=== PATIENT | female | born 1940 | race Caucasian/White ===

== ENCOUNTER 2023-08-12 07:42 | Emergency (ER) | payer OTHER, SELFPAY ==
[2023-08-12 07:52] VITALS: BP 168/88
[2023-08-12 07:53] VITALS: BP 168/88; BMI 28.9
[2023-08-12 08:00] VITALS: BP 149/100
--- NOTE | 2023-08-12 08:09 | ED.GENMED ---
History of Present Illness
General
Chief Complaint: Cold/Flu/URI Symptoms
Source: patient
Exam Limitations: none
Time Seen by Provider: 08/12/23 08:02
Travel History
Have you had any contact with someone who has COVID-19?: No
Do you have any symptoms of coronavirus? Fever > 100 degrees, chills, cough, shortness of breath, sore throat, loss of taste or smell, muscle aches, or headache?: No
History of Present Illness
History of Present Illness:
82-year-old female who vaguely just does not feel right for the past week. Complaining of some chills fatigue weakness. No specific localizing symptoms denying chest pain shortness of breath abdominal pain. Does note some diarrhea. Has been
having ongoing low back issues for the last month and was diagnosed with sciatica. Was on a course of steroids and Flexeril. We started another course of steroids last week but stopped it because she did not feel well with it. Some shooting pain
and numbness down the right leg. No weakness in the leg. No bowel or bladder issues.
Past History
Past History
ED Past Medical History: GERD, HTN, Hypercholesterolemia and Hypothyroidism
ED Past Surgical History: Orthopedic
Social History
Tobacco: Non-smoker
Alcohol: None
Drug: None
Personal:
Living: alone
Family History
Family History: Other (Her dad had an CO at 39)
Review of Systems
Review of Systems
Constitutional: Reports fatigue and chills; Denies fever
Respiratory: Reports no symptoms
Cardiac: Reports no symptoms
ABD/GI: Denies abdominal pain
: Reports no symptoms
Phy Exam
Physical Exam
Physical Exam:
GENERAL: Alert and oriented in no apparent distress
EYE: Orbits normal.
NECK: Supple
CARDIAC: Regular rate and rhythm without any obvious murmurs.
LUNGS: Clear breath sounds,normal
ABDOMEN: Soft, without focal tenderness or distention. Abdominal wall hernia nontender. No CVA tenderness
NEUROLOGICAL: Alert and oriented , grossly non-focal
SKIN: Warm and dry, no rash or lesion, no discoloration, skin intact.
MUSCULOSKELETAL: No edema,no deformity.Good color. Pain in the right leg with right straight leg raising. Good distal strength. No cord. No right leg swelling. No erythema
PSYCH: Normal and appropriate interaction.
Course
Orders/Labs/Results
Orders:
Orders
08/12/23 08:08
Electrocardiogram (*1) Urgent
Reason for Study: Other
Other Reason for Exam: sepsis
Cardiac Monitoring- Treatment ONCE
EKG- Treatment ONCE
IV Insert/Care/Rem.- Treatment PRN
CR Chest - 2 Views Urgent
Comment:
Reason For Exam: Chills fatigue weakness
Lumbar Spine, 2 or 3 View [CR Lumbar Spine 2 Or 3 Views] Urgent
Comment:
Reason For Exam: Nontraumatic low back pain/chills
Pulse Ox/cont/shift [RESP] Urgent
Quantity: 1
08/12/23 08:13
COVID-19 Antigen Urgent
Source: Nasal Swab
CRP [C-Reactive Protein] Urgent
Complete Blood Count/With Diff Urgent
Comprehensive Metabolic Panel Urgent
ESR [Erythrocyte Sed Rate] Urgent
Lactic Acid Q4H
Comment: CANCEL 2nd LACTIC ACID IF 1st LACTIC ACID IS LESS THAN 2
Troponin I Urgent
Blood Culture Q30M
KAVON Source: Blood/Venous
Specimen Description:
Blood Culture Q30M
KAVON Source: Blood/Venous
Specimen Description:
Influenza A+B Rapid Molecular Urgent
KAVON Source: Nasal Swab
Specimen Description:
08/12/23 08:15
Lactic Acid Q4H
Comment: CANCEL 2nd LACTIC ACID IF 1st LACTIC ACID IS LESS THAN 2
08/12/23 10:08
Urinalysis Reflex To Culture Urgent
Date Specimen was Collected: 08/12/23
Time Specimen was Collected: 08:12
Abnormal Lab Results
08/12/23
08:13
MCH 32.3 H pg
(27.0-31.0)
Absolute Lymphs (auto) 3.5 H 10^3/uL
(1.2-3.4)
Absolute Monos (auto) 0.9 H 10^3/uL
(0.1-0.6)
Monocytes % 9.8 H %
(1.7-9.3)
Sodium 133 L mmol/L
(135-145)
BUN 19 H mg/dl
(7-17)
Glucose 165 H mg/dl
(70-99)
Lactic Acid 2.2 H mmol/L
(0.7-2.0)
08/12/23 08:13
08/12/23 08:13
Vital Signs
Initial and Last Documented VS:
Initial Vital Signs
BP
168/88
08/12/23 07:52
Last Documented Vital Signs
Temp Pulse Resp BP Pulse Ox
98.1 F 99 18 146/95 95
08/12/23 07:53 08/12/23 09:30 08/12/23 07:53 08/12/23 10:49 08/12/23 10:49
MDM/Problems Addressed
Differential Diagnosis Includes:
Very large differential for vague symptoms of just not feeling well with some chills and mild diarrhea. Doubt cardiac although will get troponin and EKG. Doubt respiratory issue. Doubt acute abdominal issue. Although colitis would be in the
differential. Would have to consider an infectious issue related to her low back although neurologically stable. Will do CRP and ESR to help risk stratify. Will do COVID and flu although unlikely. Workup in progress.
*Radiology
Radiology exam reviewed: radiology read reviewed (No acute findings)
*Pulse Oximetry
Patient hypoxic: no
*EKG
Interpreted by ED Provider?: Yes
Interpretation: normal
Comparison EKG: no changes
Heart Rate: 93
Rate: normal
Rhythm: sinus
[place]: normal axis
Interval: normal interval
QRS Pattern: normal QRS
Ischemia: no ischemia
*Critical Care Note
Total Time (30-74mins, 75-104mins- exclusive of procedures): Not Applicable
Data Reviewed
Review of Other/Old Records Reveals: Labs, Records, Testing and Discharge Summary
Update Note
Update Note:
Patient is remained clinically stable and nontoxic. Has had mild diarrhea. Some chills had nothing to support a bacterial infectious issue. All testing is unremarkable except for a very minimal lactic acid level elevation. I do not feel patient
is clinically septic. No indication for admission at this time. Symptomatic outpatient treatment and follow-up. Patient does have her sciatic issues but no acute neurosurgical issues. I also discussed whether the patient is comfortable managing
at home which she states she is.
Of note, patient has had no diarrhea throughout her ER stay
ED Attending Note
-
Portions of this chart may have been created with voice recognition software.� Occasional wrong word or��sound alike� substitutions may have occurred due to the inherent limitations of voice recognition software.
Discharge Plan
Departure
Patient Disposition: Home (Routine Discharge)
Date of Disposition: 08/12/23
Time of Disposition: 11:17
Patient with high blood pressure during this ER visit?: Yes
Discharge Problem:
General fatigue and weakness, Diarrhea by history, Ongoing sciatica
Instructions: Fatigue (DC), Sciatica (DC), Generalized Weakness (DC), BLOOD PRESSURE
Prescriptions:
No Action
multivitamin [Multiple Vitamin] 1 EACH tablet
1 ea PO DAILY
metoprolol succinate 100 MG tablet extended release 24 hr
100 mg PO DAILY
simvastatin 10 MG tablet
10 mg PO DAILY
Patient Comments:
Patient unsure of dose
omeprazole 20 MG tablet,delayed release (DR/EC)
20 mg PO DAILY
Patient Comments:
patient unsure of dose
levothyroxine 88 MCG tablet
88 mcg PO DAILY
magnesium oxide 500 MG tablet
500 mg PO DAILY 0RF
amlodipine 5 MG tablet
5 mg PO DAILY
Patient Comments:
dose unknown
torsemide 5 MG tablet
5 mg PO MOWEFR
aspirin 325 MG tablet
325 mg PO DAILY 23 Days Qty: 23 0RF
Rx Instructions:
continue through June 29, 2021 to complete 4 week treatment regimen for DVT ppx post-orthopedic surgery
sennosides-docusate sodium 1 TABLET tablet
1 tab PO BID 0RF
acetaminophen 650 MG/20.3 ML solution
650 mg PO Q6HPRN PRN (Reason: mild pain/ fever>100.5F) 0RF
Referrals:
Omrai Jackson MD [Family Provider] - Follow up in 2-3 days
Interventions
Interventions:
*Risk Screen - Suicide Last Done: 08/12/23 07:53
*General Assessment Last Done: 08/12/23 07:53
*Neglect/Abuse Screening Last Done: 08/12/23 07:53
ED- Fall Risk Assessment Last Done: 08/12/23 07:53
*ED COVID-19 Vaccine History Last Done: 08/12/23 07:53
*Nursing Disposition Last Done: 08/12/23 11:40
ED- Pulmonary Assessment Last Done: 08/12/23 07:53
Discharge Date and Time
Discharge Date/Time: 08/12/23 11:41
Print Language: MONGOLIAN
[2023-08-12 08:38] LABS: % Eosinophils 1.2 % (0-6); % Immature Granulocytes 0.3 % (0-0.5); % Lymphocytes 37.4 % (20.5-51.1); % Monocytes 9.8 % (1.7-9.3); % Neutrophils 50.3 % (42.2-75.2); Absolute Basophils 0.1 10^3/uL (0-0.2); Absolute Eosinophils 0.1 10^3/uL (0-0.7); Absolute Lymphocytes 3.5 10^3/uL (1.2-3.4); Absolute Monocytes 0.9 10^3/uL (0.1-0.6); Absolute Neutrophils 4.7 10^3/uL (1.4-6.5); Hematocrit 43.3 % (37.0-47.0); Hemoglobin 15.1 g/dL (12.0-16.0); Mean Corp Hgb Conc. 34.9 g/dL (33.0-37.0); Mean Corpuscular Hgb 32.3 pg (27.0-31.0); Mean Corpuscular Volume 92.5 fL (81.0-99.0); Mean Platelet Volume 9.7 fL (7.4-10.4); Nucleated Red Blood Cells % 0 %; Platelet Count 321 10^3/uL (130-400); Red Blood Cell Count 4.68 10^6/uL (4.20-5.40); Red Cell Dist. Width 12.9 % (11.5-14.5); White Blood Cell Count 9.4 10^3/uL (4.8-10.8)
[2023-08-12 08:52] LABS: ALT (SGPT) 16 U/L (0-35); AST (SGOT) 27 U/L (14-36); Albumin 4.6 g/dl (3.5-5.0); Alkaline Phosphatase 62 U/L (38-126); Blood Urea Nitrogen 19 mg/dl (7-17); Calcium 9.5 mg/dl (8.4-10.2); Carbon Dioxide 22 mmol/L (22-30); Chloride 102 mmol/L (98-107); Estimated Creatinine Clearance 50 ml/min; Glucose 165 mg/dl (70-99); Potassium 3.8 mmol/L (3.5-5.1); Sodium 133 mmol/L (135-145); Total Bilirubin 0.8 mg/dl (0.2-1.3); Total Protein 7.5 g/dl (6.3-8.2); eGFR > 60.00
[2023-08-12 08:53] LABS: Lactic Acid 2.2 mmol/L (0.7-2.0)
[2023-08-12 09:00] VITALS: BP 160/87
[2023-08-12 09:03] LABS: C-Reactive Protein < 5.00 mg/L (0.0-10.00); Troponin I < 0.012 ng/ml
[2023-08-12 09:11] LABS: Erythrocyte Sed Rate 18 mm/hour (0-20)
[2023-08-12 09:33] LABS: COVID-19 Antigen Negative (Negative)
[2023-08-12 10:33] LABS: Urine Albumin Negative (Neg - Trace); Urine Bilirubin Negative (Negative); Urine Character Clear (Clear); Urine Color Yellow; Urine Glucose Negative (Negative); Urine Ketone Negative (Negative); Urine Leukocyte Negative (Negative); Urine Nitrite Negative (Negative); Urine Occult Blood Negative (Negative); Urine Urobilinogen Negative (Neg - 1+)
[2023-08-12 10:49] VITALS: BP 146/95
== END 2023-08-12 11:41 | disposition home or self-care (01) ==
LOC: EMR 07:42
PROVIDERS: EMERGENCY PHYSICIAN Emergency Medicine; FAMILY PHYSICIAN Internal Medicine
DX: R53.1 Weakness (principal); R53.83 Other fatigue; M54.40 Lumbago with sciatica, unspecified side; K21.9 Gastro-esophageal reflux disease without esophagitis; I10 Essential (primary) hypertension; E03.9 Hypothyroidism, unspecified; E78.00 Pure hypercholesterolemia, unspecified
CPT/HCPCS: 99283; 71046; 72100; 80053; 81003; 83605; 84484; 85025; 85652; 86140; 87040; 87502; 87811; 93005

== ENCOUNTER 2024-12-10 18:56 | Emergency (ER) | payer OTHER, SELFPAY ==
[2024-12-10 19:01] VITALS: BP 162/91
[2024-12-10 19:33] LABS: Hematocrit 40.6 % (37.0-47.0); Hemoglobin 14.0 g/dL (12.0-16.0); Mean Corp Hgb Conc. 34.5 g/dL (33.0-37.0); Mean Corpuscular Volume 92.9 fL (81.0-99.0); Platelet Count 282 10^3/uL (130-400); Red Cell Dist. Width 12.5 % (11.5-14.5)
--- NOTE | 2024-12-10 19:47 | EDRN ---
Patient to the front desk person stating that she is gonna go home. patient states she is feeling better and will follow up with her PCP. Patient also notes that her grand daughter is a cardiac nurse and told her to go home.
[2024-12-10 19:55] LABS: ALT (SGPT) 11 U/L (0-35); AST (SGOT) 23 U/L (14-36); Albumin 4.7 g/dl (3.5-5.0); Alkaline Phosphatase 50 U/L (38-126); Blood Urea Nitrogen 15 mg/dl (7-17); Calcium 9.2 mg/dl (8.4-10.2); Carbon Dioxide 24 mmol/L (22-30); Chloride 102 mmol/L (98-107); Glucose 167 mg/dl (70-99); Potassium 3.9 mmol/L (3.5-5.1); Sodium 136 mmol/L (135-145); Total Protein 7.7 g/dl (6.3-8.2); eGFR > 60.00
== END 2024-12-10 19:51 | disposition left against medical advice (07) ==
LOC: EMR 18:56
PROVIDERS: EMERGENCY PHYSICIAN Student in an Organized Health Care Education/Training Program
DX: R42 Dizziness and giddiness (principal); Z53.21 Procedure and treatment not carried out due to patient leaving prior to being seen by health care provider
CPT/HCPCS: 80053; 85027; 93005